=== PATIENT | male | born 1985 | race Caucasian/White ===

== ENCOUNTER 2019-05-23 01:53 | Emergency (ER) | payer SELFPAY | END 2019-05-23 02:30 | disposition other institution (70) | LOC: ED 01:53 | DX: Z02.89 Encounter for other administrative examinations (principal) ==

== ENCOUNTER 2019-05-23 01:53 | Emergency (ER) | payer OTHER ==
[~2019-05-23] VITALS: Ht 165.1 cm; Wt 77.1 kg
[2019-05-23 02:30] VITALS: BP 128/77
== END 2019-05-23 02:30 | disposition other institution (70) ==
LOC: ED 01:53
DX: Z02.89 Encounter for other administrative examinations (principal)